=== PATIENT | female | born 1930 | race American Indian/Alaskan Native ===

== ENCOUNTER 2016-09-08 17:06 | Inpatient (IN) | payer MEDICARE, OTHER ==
[2016-09-08 17:09] VITALS: BMI 29.2
[2016-09-08] MEDS ORDERED: Nitroglycerin 2% Ointment Foilpak UD TOP STA (17:28)
[2016-09-08] MEDS ORDERED: Sodium Chloride 0.9% 500 ML IV STA (17:30)
[2016-09-08 17:47] LABS: ADD MANUAL DIFF? NO
[2016-09-08 17:50] LABS: BASO # 0.04 K/mm3 (0.0-2.0); BASO % 0.4 % (0.0-3.0); EOS # 0.5 (0.0-0.7); EOS % 4.7 % (1.5-5.0); GRAN # 6.75 (1.4-6.5); GRAN % 70.3 % (50.0-68.0); HEMATOCRIT 39.8 % (36.0-48.0); LYMPH # 1.6 (1.2-3.4); LYMPH % 16.3 % (22.0-35.0); MEAN CELL VOLUME 93.9 fL (80.0-105.0); MEAN CORPUSCULAR HEMOGLOBIN 29.2 pg (25.0-35.0); MEAN CORPUSCULAR HGB CONC 31.2 g/dl (31.0-37.0); MEAN PLATELET VOLUME 10.2 fl (7.0-11.0); MONO # 0.8 (0.1-0.6); MONO % 8.3 % (1.0-6.0); PLATELET COUNT 282 10^3/uL (120.0-450.0); RED CELL DISTRIBUTION WIDTH 15.9 % (11.5-14.5); WHITE BLOOD COUNT 9.6 10^3/ul (4.5-11.0)
[2016-09-08 17:51] LABS: VENOUS BLOOD GAS BASE EXCESS -2.4 mmol/L (0.0-2.0)
--- NOTE | 2016-09-08 17:54 | ED PDOC ---
Arrival/HPI - General Chief Complaint: Chest Pain Time Seen by Provider: 09/08/16 17:11 Historian: Patient - History of Present Illness Narrative History of Present Illness (Text): 09/08/16 17:53 85 year old female with a past medical history that includes hypertension, diabetes, hypothyroidism, coronary artery disease, chronic lymph edema, chronic diastolic CHF, and kidney failure presents to the emergency department with chest pain since 15:00 today. She states it feels like indigestion. She reports she took 3 sublingual nitros (she usually takes this when she has chest pain) which almost resolved symptoms. Patient reports she took Plavix 75 mg this morning. Patient also reports associated nausea. No vomiting, fever, cough, abdominal pain, or back pain. She states she does not remember the last time she had an echocardiogram or stress test. PMD: Dr. Nieto ([place], [place]) Wafer Cleaner: Dr. Barraza ([place], [place]) Time/Duration: 1-3 hours Symptom Onset: Sudden Symptom Course: Improving Associated Symptoms (Text): Nausea Past Medical History - Provider Review Nursing Documentation Reviewed: Yes - Infectious Disease Hx of Infectious Diseases: None - Reproductive Menopause: Yes - Cardiac Hx Cardiac Disorders: Yes Hx Angina: Yes Other/Comment: left bundle branch block, - Pulmonary Hx Respiratory Disorders: No - Neurological Hx Neurological Disorder: No - HEENT Hx HEENT Disorder: No - Renal Hx Renal Disorder: No - Endocrine/Metabolic Hx Hypothyroidism: Yes - Hematological/Oncological Hx Blood Disorders: No Other/Comment: hyponatremia - Integumentary Hx Dermatological Disorder: Yes Other/Comment: B/L lymphadema - Musculoskeletal/Rheumatological Hx Arthritis: Yes - Genitourinary/Gynecological Hx Genitourinary Disorders: No - Psychiatric Hx Psychophysiologic Disorder: No Hx Substance Use: No - Surgical History Hx Thyroidectomy: Yes Other/Comment: sx ovary, - Anesthesia Hx Anesthesia: No Hx Anesthesia Reactions: No Hx Malignant Hyperthermia: No Family/Social History - Physician Review Nursing Documentation Reviewed: Yes Family/Social History: Unknown Family HX Smoking Status: Never Smoked Hx Alcohol Use: No Hx Substance Use: No Allergies/Home Meds Allergies/Adverse Reactions: Allergies No Known Allergies Allergy (Verified 09/08/16 17:09) Review of Systems - Physician Review All systems were reviewed & negative as marked: Yes - Review of Systems Constitutional: absent: Fevers Respiratory: absent: Cough Cardiovascular: Chest Pain Gastrointestinal: Nausea. absent: Abdominal Pain Musculoskeletal: absent: Back Pain Physical Exam Vital Signs Reviewed: Yes Vital Signs Temp Pulse Pulse Resp BP Pulse Ox 09/08/16 17:15 110 H 09/08/16 17:09 99.9 F H 110 H 18 163/75 H 95 Temperature: Afebrile Blood Pressure: Hypertensive Pulse: Tachycardic Respiratory Rate: Normal Appearance: Positive for: Well-Appearing, Non-Toxic, Comfortable Pain Distress: None Mental Status: Positive for: Alert and Oriented X 3 - Systems Exam Head: Present: Atraumatic, Normocephalic Pupils: Present: PERRL Extroacular Muscles: Present: EOMI Conjunctiva: Present: Normal Mouth: Present: Moist Mucous Membranes Neck: Present: Normal Range of Motion Respiratory/Chest: Present: Clear to Auscultation, Good Air Exchange. No: Respiratory Distress, Accessory Muscle Use Cardiovascular: Present: Regular Rate and Rhythm, Normal S1, S2. No: Murmurs Abdomen: Present: Normal Bowel Sounds. No: Tenderness, Distention, Peritoneal Signs Back: Present: Normal Inspection Upper Extremity: Present: Normal Inspection. No: Cyanosis, Edema Neurological: Present: GCS=15, CN II-XII Intact, Speech Normal Skin: Present: Warm, Dry, Normal Color. No: Rashes Psychiatric: Present: Alert, Oriented x 3, Normal Insight, Normal Concentration Medical Decision Making ED Course and Treatment: Impression: 85 year old female with a past medical history that includes hypertension, diabetes, hypothyroidism, coronary artery disease, chronic lymph edema, chronic diastolic CHF, and kidney failure presents to the emergency department with chest pain since 15:00 today. Differential Diagnosis include but are not limited to: Chest pain r/o ACS vs Sepsis Plan: -- EKG, Chest X-ray -- Aspirin, NitroBid 2% Oint -- Labs -- Reassess and disposition Progress Notes: 09/08/16 18:46 Rocephin IV and Azithromycin PO given right infiltrate. I discussed case with Dr. Dewitt who will place patient on telemetry observation to his service. Resident Jackie was notified of case. - Lab Interpretations Lab Results: 09/08/16 17:28 09/08/16 17:28 Lab Results 09/08/16 17:28: WBC 9.6, RBC 4.24, Hgb 12.4, Hct 39.8, MCV 93.9, MCH 29.2, MCHC 31.2, RDW 15.9 H, Plt Count 282, MPV 10.2, Gran % 70.3 H, Lymph % (Auto) 16.3 L , [place] % (Auto) 8.3 H, Eos % (Auto) 4.7, Baso % (Auto) 0.4, Gran # 6.75 H, Lymph # 1.6, [place] # 0.8 H, Eos # 0.5, Baso # 0.04, PT 10.1, INR 0.94, APTT 20.5 L, pO2 54, VBG pH 7.30 L, VBG pCO2 50.0, VBG HCO3 24.6, VBG Total CO2 26.1, VBG O2 Sat (Calc) 88.8 H, VBG Base Excess -2.4 L, VBG Potassium 3.7, Glucose 152 H, Lactate 2.0, FiO2 21.0, Sodium 143.0, Potassium 3.7, Chloride 111.0 H, Carbon Dioxide 25, Anion Gap 13, BUN 24 H, Creatinine 1.4, Est GFR ( Amer) 43, Est GFR (Non-Af Amer) 36, Random Glucose 146 H, Calcium 8.9, Phosphorus 3.5, Magnesium 2.0, Total Bilirubin 0.5, AST 23, ALT 21, Alkaline Phosphatase 106, Lactate Dehydrogenase 464, Total Creatine Kinase 33 L, Troponin I 0.04, NT-Pro- B Natriuret Pep 2240 H, Total Protein 7.0, Albumin 3.3, Globulin 3.7, Albumin/ Globulin Ratio 0.9 L, Venous Blood Potassium 3.7 - RAD Interpretation Radiology Orders: 09/08/16 17:28 CHEST PORTABLE [RAD] Stat - EKG Interpretation EKG Interpretation (Text): EKG shows sinus tachycardia with left bundle branch block, no changes from previous EKG on 08/02/15 Interpreted by ED Physician: Yes Type: 12 lead EKG - Medication Orders Current Medication Orders: Ceftriaxone Sodium (Rocephin 1 Gram Ivpb) 100 mls @ 200 mls/hr IVPB STAT STA PRN Reason: Protocol Stop: 09/08/16 19:02 Discontinued Medications Aspirin (Aspirin) 325 mg PO STAT STA Stop: 09/08/16 17:29 Last Admin: 09/08/16 18:01 Dose: Not Given Non-Admin Reason: Patient Refused Azithromycin (Zithromax) 500 mg PO STAT STA PRN Reason: Protocol Stop: 09/08/16 18:34 Sodium Chloride (Sodium Chloride 0.9%) 500 mls @ 999 mls/hr IV .Q31M STA Stop: 09/08/16 18:00 Last Admin: 09/08/16 18:01 Dose: 999 MLS/HR eMAR Start Stop Document 09/08/16 18:01 REECE (Rec: 09/08/16 18:01 REECE [id number]) Intravenous Solution Start Date 09/08/16 Start Time 18:00 End Date 09/08/16 End time 18:30 Total Infusion Time 30 Nitroglycerin (Nitro-Bid 2% Oint) 1 ea TOP STAT STA Stop: 09/08/16 17:29 Last Admin: 09/08/16 18:01 Dose: 1 EA - Scribe Statement The provider has reviewed the documentation as recorded by the Mike Perez Provider Scribe Attestation: All medical record entries made by the Mike were at my direction and personally dictated by me. I have reviewed the chart and agree that the record accurately reflects my personal performance of the history, physical exam, medical decision making, and the department course for this patient. I have also personally directed, reviewed, and agree with the discharge instructions and disposition. Disposition/Present on Arrival - Present on Arrival Any Indicators Present on Arrival: No History of DVT/PE: No History of Uncontrolled Diabetes: No Urinary Catheter: No History of Decub. Ulcer: No History Surgical Site Infection Following: None - Disposition Have Diagnosis and Disposition been Completed?: Yes Diagnosis: Pneumonia, Chest pain Disposition: HOSPITALIZED Disposition Time: 18:46 Patient Plan: Admission Condition: FAIR Discharge Instructions (ExitCare): Chest Pain (ED)
[2016-09-08 18:00] LABS: ALB/GLOB RATIO 0.9 (1.1-1.8); BILIRUBIN,TOTAL 0.5 mg/dL (0.2-1.3); CALCIUM 8.9 mg/dL (8.4-10.5); PHOSPHOROUS 3.5 mg/dL (2.5-4.5); POTASSIUM 3.7 mmol/L (3.6-5.0)
[2016-09-08 18:02] LABS: INR 0.94 (0.93-1.08); PARTIAL THROMBOPLASTIN TIME 20.5 Seconds (23.7-30.8)
[2016-09-08 18:12] LABS: TROPONIN I 0.04 ng/mL
[2016-09-08] MEDS ORDERED: cefTRIAXone 1 gm 100 ML IVPB STA (18:33)
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
[2016-09-09] MEDS: Oxycodone/Acetaminophen 2.5/325 mg Tab PO PRN ×3 (02:00→18:13)
[2016-09-09 07:49] LABS: VENOUS BLOOD GAS BASE EXCESS 0.8 mmol/L (0.0-2.0)
[2016-09-09 08:54] LABS: TROPONIN I 0.35 ng/mL
[2016-09-09] MEDS: cefTRIAXone 1 gm 100 ML IVPB SCH (11:05)
[2016-09-09] MEDS: Silver Sulfadiazine 1% Cream (20 gm) TOP SCH (11:06)
--- NOTE | 2016-09-09 11:13 | CON ---
DATE: 09/09/2016 HISTORY OF PRESENT ILLNESS: The patient is an 85-year-old woman from [place] who presents with ches t pain. She also complains of shortness of breath. PAST MEDICAL HISTORY: Notable for chronic lymphedema, diabetes mellitus, hypertension, and renal ins ufficiency. She apparently took Plavix at home. She is not aware whether she has had previous cardi ac history or not. EKG shows sinus tachycardia with left bundle branch block, nonspecific ST-T changes. LABORATORIES: Reveal a troponin of 0.35. BUN and creatinine are 24 and 1.4. The hemoglobin is 12.2 with a white count of 9.6. IMPRESSION: 1. Non-ST elevation myocardial infarction. 2. High probability for coronary artery disease. 3. Chronic lymphedema with severe scarring in the lower extremities. 4. Diabetes mellitus. 5. Hypertension. 6. Abnormal EKG. Given these findings, we will increase her beta blockers to 12.5 b.i.d. of carvedilol, change her sub Q heparin to full dose Lovenox. Plavix daily has been ordered. Wound care as necessary to the lower extremities. Aspirin has been ordered. We will obtain an echocardiogram. Immanuel Smalls MD cc: [id number] TT: 09/09/2016 11:12:47 Confirmation # [id number] Dictation # [id number] tn
--- NOTE | 2016-09-09 11:22 | CON ---
DATE: 09/09/2016 An 85-year-old female seen at bedside with her daughter present for consultation, evaluation and crispin gement of chronic venous stasis changes to both lower extremities resulting in elephantitis-like lowe r legs with severe drainage. The patient was admitted for chest pain and pneumonia. PAST MEDICAL HISTORY: Significant for congestive heart failure, severe peripheral vascular disease. ALLERGIES: The patient has no known drug allergies. HOME MEDICATIONS: Noted in JUL. VITAL SIGNS: Reveal temperature of 98.7, pulse rate of 67, blood pressure of 152/76 respiratory rat e of 20. LABORATORY FINDINGS: Reveal a white count of 9.6, hemoglobin of 12.4, hematocrit of 39.8 and platele t count of 282. There is no microbiology report noted. OBJECTIVE: Nonpalpable pedal pulses noted bilaterally, +4 nonpitting lower extremity edema with chica re venous stasis dermatitis changes consistent with elephantitis on both lower legs. There is noted to be clear drainage on the distal aspect of each leg and foot. There is no purulence to suggest und erlying abscess formation. There is discomfort, but no pain upon palpation. There are no clinical s igns of cellulitis. ASSESSMENT: Severe venous stasis dermatitis with venous stasis ulcerations with accompanying elephan titis clinical presentation. PLAN: The patient's legs were cleansed with a solution of Betadine and normal sterile saline. A dry sterile dressing consisting of abdominal pads, Kerlix and Jordy wraps was applied. We will order veno us Dopplers and arterial Dopplers to ascertain lower extremity perfusion. We will cleanse wounds wit h acetic acid and saline going forward. The patient was told to keep both legs elevated at all times when in bed. Juan Machado DPM cc: [id number] TT: 09/09/2016 11:21:18 Confirmation # [id number] Dictation # [id number] ada
--- NOTE | 2016-09-09 11:24 | CARD ---
APPROVED REPORT EKG Measurement Heart [id number] CT 166P65 [id number] <Conclusion> Sinus tachycardia Possible Left atrial enlargement Left bundle branch block
--- NOTE | 2016-09-09 11:28 | RAD ---
HISTORY: chest pain COMPARISON: No prior. FINDINGS: LUNGS: Diffuse bilateral micronodular appearing infiltrates are present bilaterally were the asymmetrically more prominent on the right than the left ; rule out pneumonia versus asymmetric pulmonary edema. Note that the lung apices are partially obscured by overlying facial and soft tissue artifact. PLEURA: No significant pleural effusion identified, no pneumothorax apparent. CARDIOVASCULAR: Heart size is borderline/ mildly enlarged. OSSEOUS STRUCTURES: No generator changes both shoulder girdles. VISUALIZED UPPER ABDOMEN: Normal. OTHER FINDINGS: None. IMPRESSION: Limited study as described.Diffuse bilateral micronodular appearing infiltrates are present bilaterally were the asymmetrically more prominent on the right than the left ; rule out pneumonia versus asymmetric pulmonary edema.
[2016-09-09 12:10] LABS: PH,URINE 5.5 (4.7-8.0); URINE APPEARANCE CLEAR (CLEAR); URINE BILIRUBIN NEGATIVE (NEGATIVE); URINE BLOOD NEGATIVE (NEGATIVE); URINE COLOR YELLOW (YELLOW); URINE GLUCOSE (UA) NEGATIVE (NEGATIVE); URINE KETONE NEGATIVE (NEGATIVE); URINE LEUKOCYTE ESTERASE TRACE Leu/uL (NEGATIVE); URINE PROTEIN 30 mg/dL (<30 mg/dL); URINE UROBILINOGEN 0.2 E.U./dL (<1 E.U./dL)
[2016-09-09 12:25] LABS: URINE BACTERIA FEW (NEG); URINE RBC 0 - 2 /hpf (0-2)
[2016-09-09] MEDS: Enoxaparin 80 mg Syringe SC SCH (12:58)
[2016-09-10] MEDS: Enoxaparin 80 mg Syringe SC SCH ×2 (00:07→12:19)
[2016-09-10] MEDS: Oxycodone/Acetaminophen 2.5/325 mg Tab PO PRN ×3 (00:14→17:20)
[2016-09-10 07:00] LABS: ADD MANUAL DIFF? NO
[2016-09-10 07:16] LABS: BASO # 0.03 K/mm3 (0.0-2.0); BASO % 0.3 % (0.0-3.0); EOS # 0.7 (0.0-0.7); EOS % 7.8 % (1.5-5.0); GRAN # 6.18 (1.4-6.5); GRAN % 68.1 % (50.0-68.0); HEMATOCRIT 38.2 % (36.0-48.0); LYMPH # 1.1 (1.2-3.4); LYMPH % 12.3 % (22.0-35.0); MEAN CELL VOLUME 93.4 fL (80.0-105.0); MEAN CORPUSCULAR HEMOGLOBIN 28.9 pg (25.0-35.0); MEAN CORPUSCULAR HGB CONC 30.9 g/dl (31.0-37.0); MEAN PLATELET VOLUME 10.4 fl (7.0-11.0); MONO % 11.5 % (1.0-6.0); PLATELET COUNT 254 10^3/uL (120.0-450.0); RED CELL DISTRIBUTION WIDTH 15.9 % (11.5-14.5); WHITE BLOOD COUNT 9.1 10^3/ul (4.5-11.0)
[2016-09-10 07:17] LABS: BILIRUBIN,TOTAL 0.5 mg/dL (0.2-1.3); CALCIUM 8.5 mg/dL (8.4-10.5); POTASSIUM 4.1 mmol/L (3.6-5.0); TOTAL PROTEIN 6.7 g/dL (5.8-8.3)
--- NOTE | 2016-09-10 09:33 | CARD ---
APPROVED REPORT EKG Measurement Heart [id number] AL 164P56 [id number] <Conclusion> Normal sinus rhythm Left bundle branch block No change
[2016-09-10] MEDS: cefTRIAXone 1 gm 100 ML IVPB SCH (10:47)
[2016-09-10] MEDS: Silver Sulfadiazine 1% Cream (20 gm) TOP SCH (10:55)
[2016-09-10] MEDS ORDERED: levoFLOXacin 500 MG TAB PO SCH (12:45)
[2016-09-10] MEDS ORDERED: Pantoprazole 40 mg EC Tab PO STA (13:53)
--- NOTE | 2016-09-10 15:02 | PN ---
DATE: 09/10/[address] Immanuel Smalls. The patient denies any chest pain at this time. Shortness of breath has improved. PHYSICAL EXAMINATION: VITAL SIGNS: Blood pressure 173/78, heart rate 67, temperature 98.2, respirations 19. HEENT: Normocephalic. NECK: No JVD. CHEST: Bilateral rhonchi. HEART: S1, S2 regular. EXTREMITIES: Significant lymphedema of both lower extremities with cellulitis. LABORATORIES: CBC: WBC 9.1, hemoglobin 11.8, hematocrit 38.2, platelet count 254,000. Today's BUN and creatinine are 33 and 1.5. Troponins were 0.19 and 0.17. EKG revealed sinus rhythm, left bundle branch block. ASSESSMENT: 1. Chest pain, consider non-ST elevation myocardial infarction. 2. Chronic lymphedema of both lower extremities. 3. Hypertension and diabetes mellitus. RECOMMENDATIONS: Continue Coreg at 12.5 mg twice a day, aspirin 81 mg once a day, Imdur 30 mg once a day, Lasix 40 mg p.o. once a day, Levaquin 500 mg orally once a day, Lipitor 80 mg once a day, Loven ox 70 mg subcutaneously twice a day, Plavix 75 mg once a day, Zithromax at 500 mg daily. Obtain vent ilation perfusion scan. I will review the echocardiograph study performed yesterday. Darwin Mena MD cc: [id number] TT: 09/10/2016 15:01:11 Confirmation # [id number] Dictation # [id number] en
--- NOTE | 2016-09-10 18:51 | CON ---
DATE: 09/10/2016 The patient is in room 261, bed 1. The patient seen earlier this morning in room 261, bed 1. CHIEF COMPLAINT: Lower extremity infection times several days. HISTORY OF PRESENT ILLNESS: This is an 85-year-old female with obesity who was admitted through the Emergency Room with shortness of breath with a history of hypertension, diabetes, hypothyroidism, cor onary artery disease, chronic lymphedema, diastolic congestive heart failure, kidney failure who was admitted now through the Emergency Room with a diagnosis of chest pain and pneumonia. Infectious dis ease consultation requested for antibiotics. In the Emergency Room, the patient had been complaining of shortness of breath, no vomiting. She denied any fevers and chills. No abdominal pain, diarrhea or constipation. The patient's daughter is next to the bed at the bedside who gives information. PAST MEDICAL HISTORY: Significant for coronary artery disease, hypertension, hypothyroidism, diabete s mellitus and high cholesterol, peptic ulcer disease, arthritis, anemia. PAST SURGICAL HISTORY: Significant for appendectomy. MEDICATIONS: At home are reviewed. ALLERGIES: The patient has no known allergies. PHYSICAL EXAMINATION: GENERAL: The patient is in bed, appearing weak. VITAL SIGNS: Temperature of 98, T-max is 99.9, blood pressure is 170/70, respiratory rate of 19-20. Heart rate is 64; it was up to 110 on admission. Saturation is 94%. HEENT: Unremarkable. NECK: Supple. LUNGS: Have decreased breath sounds. HEART: Normal S1, S2. ABDOMEN: Soft. EXTREMITIES: Examination of the lower extremities, they are noted with chronic venous stasis changes and with drainage. LABORATORY EXAMINATION: Reveals the patient has a white count of 9.6, hemoglobin of 12, platelets of 284. Coagulation is noted. Chemistries reveal the BUN of 33, creatinine of 1.5 and it was 1.4 yest erday. Procalcitonin is less than 0.05. LFTs are normal. Blood cultures are no growth. Leg cultur es are pending. Chest x-ray: Micronodular appearing infiltrates. Pneumonia versus asymmetric pulmo nary edema. History and physical examination written by is reviewed. White count of 9.6, hemoglobin of 12, platelets of 282. Coagulation is noted. Chemistries are noted. Urinalysis is noted. ASSESSMENT AND PLAN: This is an 85-year-old female with obesity, hypertension, chronic lymphedema, d iastolic congestive heart failure, kidney failure, diabetes mellitus, hypothyroidism, coronary artery disease, high cholesterol, peptic ulcer disease, arthritis, anemia with bilateral lower extremity ce llulitis acute in face of acute diastolic congestive heart failure on top of chronic congestive heart failure and with bilateral pulmonary edema, doubt bacterial pneumonia, must rule out atypical pneumo genevieve. We will treat the patient with Teflaro and azithromycin. Currently, the patient is started on azithromycin. The patient's EKG shows a QTC of 503. We will discontinue the azithromycin and treat the patient with Teflaro and doxycycline and will make further recommendations upon availability of i nitial culture results and podiatric input is appreciated. Kal Pérez MD cc: [id number] TT: 09/10/2016 18:50:09 Confirmation # [id number] Dictation # [id number] mn
[2016-09-11] MEDS: Enoxaparin 80 mg Syringe SC SCH
[2016-09-11 05:24] VITALS: RESP 20
[2016-09-11 05:42] VITALS: BP 137/58; PULSE 66; TEMP 98.1; O2SAT 96
[2016-09-11] MEDS ORDERED: Pantoprazole 40 mg EC Tab PO SCH (06:30)
[2016-09-11 06:52] LABS: ADD MANUAL DIFF? NO
[2016-09-11 07:07] LABS: BASO # 0.03 K/mm3 (0.0-2.0); BASO % 0.4 % (0.0-3.0); EOS # 0.6 (0.0-0.7); EOS % 8.6 % (1.5-5.0); GRAN # 3.88 (1.4-6.5); GRAN % 54.4 % (50.0-68.0); LYMPH # 1.6 (1.2-3.4); MEAN CELL VOLUME 92.3 fL (80.0-105.0); MEAN CORPUSCULAR HGB CONC 31.4 g/dl (31.0-37.0); MEAN PLATELET VOLUME 10.4 fl (7.0-11.0); MONO % 13.6 % (1.0-6.0); PLATELET COUNT 252 10^3/uL (120.0-450.0); RED CELL DISTRIBUTION WIDTH 15.7 % (11.5-14.5); WHITE BLOOD COUNT 7.1 10^3/ul (4.5-11.0)
[2016-09-11 07:48] LABS: ALB/GLOB RATIO 0.9 (1.1-1.8); BILIRUBIN,TOTAL 0.4 mg/dL (0.2-1.3); CALCIUM 8.2 mg/dL (8.4-10.5); TOTAL PROTEIN 6.5 g/dL (5.8-8.3)
--- NOTE | 2016-09-11 08:26 | PN ---
DATE: 09/10/2016 The patient seen and examined at bedside with the daughter. The patient is aware of the fact that sh tay did suffer an NSTEMI; however, has been refusing Lovenox as well as aspirin. She has been taking h er Plavix. Currently, has no chest pain, no shortness of breath, no nausea, no vomiting, but again i s refusing treatment at this point. PHYSICAL EXAMINATION: VITAL SIGNS: Blood pressure is 156/60, pulse rate of 64, temperature is 98.1, O2 saturation is 94%. HEENT: Normocephalic, atraumatic. [place] conjunctivae, nonicteric sclerae. NECK: No JVD, no thyromegaly. CARDIOVASCULAR: Regular rate and rhythm. S1, S2 appreciated. No S3 noted. LUNGS: Bilateral air entry is positive. No wheezes or rhonchi. ABDOMEN: Nondistended, nontender. Positive bowel sounds. EXTREMITIES: Positive for 3+ pitting edema as well as a weeping of the erythema that she is having. LABORATORIES: WBCs of 9.1, hemoglobin of 11.8, hematocrit of 38.2, platelets of 254. Chemistry with in normal limits. Creatinine is elevated at 1.5. Troponins have down trended, but they are still po sitive at 0.919, down to 1.7. Blood cultures are negative at this point. The patient refused the 2D echo that we offered her yesterday. ASSESSMENT: 1. Non-ST elevation myocardial infarction. 2. Chronic kidney disease. 3. Lymphedema. 4. Cellulitis. 5. Coronary artery disease. PLAN: At this time, we will continue IV antibiotics on this patient. We will continue her Lasix. T he patient is to be on Lovenox 70 mg subQ twice a day; however, patient has been refusing it. The pa jose also is refusing catheterization. She is refusing the duplex of the bilateral legs. Did discu ss in great detail with the family the fact that the patient had the non-ST elevation myocardial infa rction that needs the possibility of the evaluation by catheterization. They are refusing at this po int. They would like to go back to [place] for further evaluation. The patient is also refusing as pirin, but is taking her Plavix. Again, discussed with the patient the risks, benefits, alternatives to treatment to the fact that she did suffer a non-ST elevation myocardial infarction and patient's family is refusing due to the fact that they would like to return and just do the therapy that they are receiving in [place]. The patient's family would like to return to [place] tomorrow. I d id advise them that the risk of driving down there, that because she did have a myocardial infarction , is very high risk at this point, but they would not like to continue treatment up here. However, nguyễn priscilla would like to just stay overnight and then leave in the morning and take the family member to [place] for further evaluation at [facility]. Tim Dewitt MD cc: [id number] TT: 09/10/2016 10:51:45 Confirmation # [id number] Dictation # [id number] en
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
[2016-09-11] MEDS: Silver Sulfadiazine 1% Cream (20 gm) TOP SCH (09:24)
--- NOTE | 2016-09-11 10:20 | PN ---
DATE: 09/11/2016 CARDIOLOGY FOLLOWUP The patient is chest-pain free. PHYSICAL EXAMINATION: VITAL SIGNS: Blood pressure is 137/58. The heart rate is in the 60s, normal sinus rhythm. NECK: Negative JVD. LUNGS: Decreased breath sounds. HEART: Revealed S1, S2. EXTREMITIES: Marked chronic venous stasis. LABORATORY DATA: Hemoglobin is 11. Chemistries: Troponins 2 days ago are down to 0.17. BUN and cr eatinine are 37 and 1.5. IMPRESSION: 1. Non-ST elevation myocardial infarction. 2. Severe stasis of the lower extremities. 3. Hypercholesterolemia. 4. Hypertension. PLAN: Given these findings, the patient's cardiac status is stable on beta-blockers as well as aspir in. Statin therapy should be continued. Immanuel Smalls MD cc: [id number] TT: 09/11/2016 10:19:47 Confirmation # [id number] Dictation # [id number]
--- NOTE | 2016-09-11 17:16 | CARD ---
APPROVED REPORT EXAM: Two-dimensional and M-mode echocardiogram with Doppler and color Doppler. 2D DIMENSIONS Left Atrium (2D)3.3 (1.6-4.0cm)IVSd1.6 (0.7-1.1cm) LVDd4.4 (3.9-5.9cm)PWd1.5 (0.7-1.1cm) LVDs2.7 (2.5-4.0cm)FS (%) 39.1 % LVEF (%)69.7 (>50%) M-Mode DIMENSIONS Aortic Root2.70 (2.2-3.7cm)Aortic Cusp Exc.1.60 (1.5-2.0cm) Aortic Valve AoV Peak Izkdfxsq184.0cm/sAoV VTI24.2cmAO Peak GR.5mmHg LVOT Peak Jwpiphag31.0cm/sLVOT VTI20.40cmAO Mean GR.2mmHg Mitral Valve MV E Hewlanbe54.0cm/sMV E Peak Gr.121mmHgMV A Rvqvbszs868.0cm/s E/A ratio0.7 TDI Lateral E' Peak V5.85cm/sMedial E' Peak V4.97cm/sE/Lateral E'13.2 E/Medial E'15.5 Tricuspid Valve TR Peak [id number]/sTR Peak Gr.36mmHg LEFT VENTRICLE The left ventricle is normal size. There is moderate concentric left ventricular hypertrophy. The left ventricular function is normal. The left ventricular ejection fraction is within the normal range. There is normal LV segmental wall motion. Transmitral Doppler flow pattern is Grade I-abnormal relaxation pattern. RIGHT VENTRICLE The right ventricle is normal size. There is normal right ventricular wall thickness. The right ventricular systolic function is normal. ATRIA The left atrium size is normal. The right atrium size is normal. AORTIC VALVE The aortic valve is mildly thickened. No aortic regurgitation is present. MITRAL VALVE The mitral valve is thickened but opens well. Mitral regurgitation is trace to mild. TRICUSPID VALVE There is trace tricuspid regurgitation. There is mild pulmonary hypertension. GREAT VESSELS The aortic root is normal in size. The IVC is dilated. PERICARDIAL EFFUSION There is no pericardial effusion. <Conclusion> The left ventricle is normal size. There is moderate concentric left ventricular hypertrophy. The left ventricular function is normal. The left ventricular ejection fraction is within the normal range. There is normal LV segmental wall motion. Transmitral Doppler flow pattern is Grade I-abnormal relaxation pattern. There is mild pulmonary hypertension.
== END 2016-09-11 11:37 | disposition home or self-care (01) | DRG 280 ==
LOC: ED 17:06 → ERH 18:33 → 2RNO 23:06 → OBSVTOIN 09-09 12:01
PROVIDERS: ADMIT Internal Medicine; ATTEND Internal Medicine
DX: I21.4 Non-ST elevation (NSTEMI) myocardial infarction (principal); I50.33 Acute on chronic diastolic (congestive) heart failure; J18.9 Pneumonia, unspecified organism; E11.22 Type 2 diabetes mellitus with diabetic chronic kidney disease; E87.1 Hypo-osmolality and hyponatremia; L03.115 Cellulitis of right lower limb; L03.116 Cellulitis of left lower limb; I13.0 Hypertensive heart and chronic kidney disease with heart failure and stage 1 through stage 4 chronic kidney disease, or unspecified chronic kidney disease; D64.9 Anemia, unspecified; I44.7 Left bundle-branch block, unspecified; I25.10 Atherosclerotic heart disease of native coronary artery without angina pectoris; N18.9 Chronic kidney disease, unspecified; M19.90 Unspecified osteoarthritis, unspecified site; K27.9 Peptic ulcer, site unspecified, unspecified as acute or chronic, without hemorrhage or perforation; E03.9 Hypothyroidism, unspecified; E66.9 Obesity, unspecified; E78.00 Pure hypercholesterolemia, unspecified; E78.5 Hyperlipidemia, unspecified; F41.9 Anxiety disorder, unspecified; I73.9 Peripheral vascular disease, unspecified; I87.2 Venous insufficiency (chronic) (peripheral); I87.8 Other specified disorders of veins; I89.0 Lymphedema, not elsewhere classified; Z79.02 Long term (current) use of antithrombotics/antiplatelets; R40.2412 Glasgow coma scale score 13-15, at arrival to emergency department; R00.0 Tachycardia, unspecified; R94.31 Abnormal electrocardiogram [ECG] [EKG]